=== PATIENT | male | born 1965 | race Hispanic/Latino ===

== ENCOUNTER 2016-10-08 10:35 | Outpatient (CLI) | payer OTHER ==
--- NOTE | 2016-10-08 12:55 | XRay Report ---
LEFT KNEE: The bony architecture is intact without evidence of fracture or dislocation. No significant soft tissue abnormality is seen. IMPRESSION: Normal left knee.
== END 2016-10-08 10:36 | disposition home or self-care (01) ==
LOC: SPVIMAG 10:35
PROVIDERS: ATTEND Family Medicine
DX: M25.562 Pain in left knee (principal)